=== PATIENT | male | born 1995 | race Caucasian/White ===

== ENCOUNTER 2017-07-20 12:57 | Emergency (ER) | payer OTHER ==
[2017-07-20] MEDS ORDERED: ACETAMINOPHEN 325 MG TABLET PO STA (15:35)
[2017-07-20] MEDS ORDERED: cephALEXin 250 MG CAPSULE PO STA (15:35)
[2017-07-20] MEDS ORDERED: IBUPROFEN 400 MG TABLET PO STA (15:35)
--- NOTE | 2017-07-20 15:38 | ED Physician Documentation ---
History of Present Illness - Stated complaint Stated Complaint: NOSE PX - Chief complaint Chief Complaint: Wound - Additonal information Additional information: hx from pt 22 male [place] to ER with painful red swollen nose for several days otherwise well Review of Systems Constitutional: denies: Fever Nose: reports: Other (nose pain) Endocrine: denies: Easy bruising / bleeding Immunocompromised: denies: Immunocompromised PD PAST MEDICAL HISTORY - Past Medical History Past Medical History: No - Past Surgical History Past Surgical History: No - Present Medications Home Medications: Ambulatory Orders Medication Instructions Recorded Confirmed Cephalexin [Keflex] 500 mg PO Q6H #28 capsule 07/20/17 Ibuprofen [Motrin] 400 mg PO Q6H PRN #30 tablet 07/20/17 Mupirocin Calcium [Bactroban Nasal] 1 gm NS BID #10 oint...g. 07/20/17 - Allergies Allergies/Adverse Reactions: Allergies Allergy/AdvReac Type Severity Reaction Status Date / Time No Known Drug Allergies Allergy Verified 07/20/17 13:18 - Social History Does the pt smoke?: No Smoking Status: Never smoker Does the pt drink ETOH?: No Does the pt have substance abuse?: No - Immunizations Immunizations are current?: Yes - POLST Patient has POLST: No PD ED PE NORMAL - Vitals Vital signs reviewed: Yes - HEENT HEENT: Other (nose red and swollen, yellow crusting in R nares but no specific abscess to drain) - Cardiac Cardiac: RRR - Respiratory Respiratory: No respiratory distress, Clear bilaterally - Derm Derm: Other (nose red and swollen) Results - Vitals Vitals: Vital Signs - 24 hr 07/20/17 13:16 Temperature 36.7 C Heart Rate 95 Respiratory 16 Rate Blood Pressure 143/87 H O2 Saturation 97 Oxygen O2 Source Room air Departure - Departure Disposition: Home, Self Care Clinical Impression: Nose cellulitis Condition: Good Instructions: ED Cellulitis Facial Follow-Up: MARCIA Alarcon [Provider Group] Prescriptions: Cephalexin [Keflex] 500 mg PO Q6H #28 capsule Ibuprofen [Motrin] 400 mg PO Q6H PRN #30 tablet PRN Reason: Pain Mupirocin Calcium [Bactroban Nasal] 1 gm NS BID #10 oint...g. Comments: Please come back and see me tomorrow morning for a recheck unless completely better
[2017-07-20 16:06] VITALS: BP 147/82
== END 2017-07-20 16:06 | disposition home or self-care (01) ==
LOC: ED 12:57
DX: J34.0 Abscess, furuncle and carbuncle of nose (principal)
CPT/HCPCS: 99283; A9270